=== PATIENT | female | born 1990 | race Caucasian/White ===

== ENCOUNTER → 2017-01-30 | Outpatient (CLI) | payer BC ==
[~2017-01-30] MED LIST: CEPH500C PO; CIPR5DRO OU; FERR325T36 PO; NAPR220T29 PO; NORE0.354 PO; OXYC1TAB87 PO; PREN1TAB39 PO
[2017-01-30 18:33] VITALS: BP 137/83
--- NOTE | 2017-01-30 18:33 | Urgent Care T Sheet Gen (E) ---
Intake General Temperature (Fahrenheit): 97.6 Pulse: 88 Blood Pressure Systolic: 137 Blood Pressure Diastolic: 83 Respirations: 18 SPO2: 99 Chief Complaint: UC Ear/Nose/Throat Complaint Description of Symptoms This 26 y/o woman is here today because of left ear complaints she has had for 2 weeks. She states she cannot hear out of her left ear and times she hears ringing inside of it. She has had some mild pressure in her head but no nasal congestion. Her PCP is Dr. Salazar. Source: Patient Exam Limitations: No limitations History of Present Illness Onset & Duration: Weeks Timing: Still present Severity: Mild Recent Trauma: No Similar Sympotms Previously: No Allergies: Coded Allergies: No Known Drug Allergies (Unverified , 03/27/12) Home Meds Reported Medications Naproxen Sodium 220 Mg [id number] Mg PO Q12H PRN 07/14/12 Oxycodone HCl/Acetaminophen (Percocet 5mg/325mg)1 Each Tablet1 Tab PO Q 6H PRN # 20 Pain 07/14/12 Ciprofloxacin HCl (Ciloxan)5 Ml Drops1 Drop OU TID 6 Days 07/14/12 Cephalexin 500 Mg [id number] Mg PO TID 6 Days 07/14/12 Norethindrone (Nor-Q-D)0.35 Mg Tablet0.35 Mg PO DAILY 07/14/12 Ferrous Sulfate (Iron)325 Mg [id number] Mg PO DAILY 07/11/12 Vits W-Ca,Fe,Fa(<1MG) ()1 Each Tablet1 Each PO DAILY 03/27/12 Respiratory Constitutional Symptoms: No syptoms reported EENTM: See HPI Ear pain (left)No Throat pain Respiratory: No symptoms reported Cardiovascular: No symptoms reported Gastrointestinal/Abdominal: No symptoms reported Genitourinary: No symptoms reported Musculoskeletal: No symptoms reported Skin: No symptoms reported Neurological: No symptoms reported Hematologic/Lymphatic: No symptoms reported Immunologic/Allergies: No symptoms reported All Other Systems Reviewed Remaining Systems: All other systems reviewed with negative findings Physical Exam Physical Exam General Appearance: WD/WN No apparent distress Eyes, Ears, Nose, Throat Ex: PERRL/EOMINo Normal ENT inspection, TMs normal Pharynx normal Other (The left ear canal was full of cerumen but after irrigation it was reviewed and the TM was normal. ) Neck Exam: Non tender Full range of motion Supple Normal inspection Normal thyroid Respiratory Exam: Chest non-tender Lungs clear Normal breath sounds No respiratory distress No accessory muscles used Skin Exam: Normal color Warm/dry/intact No rashes No embolic lesions Neurologic/Psychiatric Exam: Oriented times 4 CN's II-X nml No motor deficits No sensory deficits Mood/affect nml Procedures/Interventions Ear Procedure : Location: Left ear Foreign Body Removed: Impacted Cerumen Instrument used for removal: Irrigation (The patient tolerated the procedure well and reported full christianity of hearing afterwards. ) Departure Urgent Care Impression Chief Complaint: UC Ear/Nose/Throat Complaint Impression: Primary Impression: Impacted cerumen of left ear Departure Disposition: HOME OR SELF-CARE Condition: Stable Referrals: SARAI SALAZAR MD (PCP) Additional Instructions: I reviewed with the patient the possibility of "swimmers ear" because of our treatment today which would present itself as ear pain. If that should occur she is instructed to call Dr. Salazar's office so that treatment for that could be evaluated. We will see back otherwise if needed. End of report . KHALIF HODGSON January 30, 2017 18:33
== END ==
LOC: MHUC 17:54
PROVIDERS: ATTEND Physician Assistant Medical
DX: H61.22 Impacted cerumen, left ear (principal)
CPT/HCPCS: 99213